=== PATIENT | female | born 1975 | race Caucasian/White ===

== ENCOUNTER 2023-03-29 15:05 | Emergency (ER) | payer BC, SELFPAY ==
[2023-03-29 15:08] VITALS: BP 135/85; PULSE 97; RESP 18; TEMP 36.2; O2SAT 99; BMI 24.7
--- NOTE | 2023-03-29 15:30 | ED.BACK ---
HPI - Back Pain/Injury General Chief Complaint: Back Injury/Pain Stated Complaint: sciatica pain Time Seen by Provider: 03/29/23 15:07 History of Present Illness HPI Narrative: This 47-year-old female comes in with low back pain radiating down her right leg. These symptoms have been present for about a week. She states that there was no injury event or strenuous activity to trigger this. She reports that she had similar symptoms several years ago and over time it completely resolved. She has been to a chiropractor but this has not provided much relief. She states that a standing position seems to minimize the pain compared to sitting or lying. Related Data Previous Rx's Medication Instructions Recorded cyclobenzaprine 10 mg tablet 10 mg PO TID #15 tabs 03/29/23 gabapentin 100 mg capsule 100 mg PO TID #30 caps 03/29/23 hydrocodone 5 mg-acetaminophen 325 1 tab PO Q4-6H PRN pain #20 tabs 03/29/23 mg tablet ketorolac 10 mg tablet 10 mg PO Q8H 5 days #15 tabs 03/29/23 methylprednisolone 4 mg tablets in See Rx Instructions PO .COMPLEX 03/29/23 a dose pack (Medrol (Brian)) #21 ea Allergies Allergy/AdvReac Type Severity Reaction Status Date / Time ciprofloxacin [From Cipro] Allergy Verified 03/29/23 15:11 Penicillins Allergy Verified 03/29/23 15:11 sulfamethoxazole Allergy Verified 03/29/23 15:11 [From Bactrim] trimethoprim [From Bactrim] Allergy Verified 03/29/23 15:11 Review of Systems Status of ROS: Reports: 10 or more systems reviewed and unremarkable except as noted in History and below Narrative: Constitutional: No fevers, no weight gain or loss. Eyes: No discharge. No vision changes. HENT: No congestion, no sore throat, no ear pain. Cardiovascular: No chest pain, no palpitations. Respiratory: No shortness of breath, no wheezes, no cough. Gastrointestinal: No abdominal pain, no vomiting, no diarrhea. Genitourinary: No dysuria, no hematuria. Musculoskeletal: Normal range of motion. Low back pain radiating down the right leg. Skin: No rashes, no pruritis. Neurological: No dizziness, weakness, sensory change, speech change. Endo/Heme/Allergies: No bruising or bleeding. No polydipsia. Pysch: no suicidality, no anxiety, no insomnia. All other systems reviewed and are negative. PFSH PFS Social History Smoking Status: Current every day smoker What tobacco products do you use: cigarettes Smoking packs per day: 0.5 Smoking cigarettes per day: 10.0 Years smoked: 32 Smoking pack-years: 16.00 Do you use any of these nicotine containing products: None Second hand tobacco smoke exposure: No How often do you have a drink containing alcohol: monthly or less How many standard drinks containing alcohol do you have on a typical day: 1 or 2 How often do you have six or more drinks on one occasion: Never AUDIT-C Alcohol total score: 1 Non-prescribed substance use: denies use service: No Exam Narrative: Exam Narrative: Constitutional: Well-developed, well-nourished, no acute distress. HEENT: Normocephalic, atraumatic. Neck: Normal range of motion. Nontender. Supple. Heart: Intact distal pulses. Lungs: No chest discomfort. No wheezes, rhonchi, or rales. Abdomen: Nontender. Back: Diffuse pain located in the right low back with pain radiating down the right leg to the foot. Extremities: Normal range of motion. No injury. Skin: Intact. No rash. Warm. No erythema or pallor. Neurologic: No altered sensation. No weakness. Alert and oriented. Psychiatric: No suicidality. No anxiety or depression. No insomnia. Nursing notes and vitals signs are reviewed. Const: Vital Signs, click to edit/add: Vital Signs - 24 hr 03/29/23 15:08 Temperature 97.2 F L Pulse Rate [Right Pulse Oximeter] 97 Respiratory Rate 18 Blood Pressure [Ri ght Upper Arm] 135/85 Pulse Oximetry 99 Oxygen Delivery Me thod Room Air Course Vital Signs Vital signs: Initial Vital Signs Temperature 97.2 F L 03/29/23 15:08 Temperature Source Temporal Artery Scan 03/29/23 15:08 Pulse Rate 97 03/29/23 15:08 Respiratory Rate 18 03/29/23 15:08 Blood Pressure 135/85 03/29/23 15:08 Blood Pressure Mean 101 03/29/23 15:08 Blood Pressure Position Sitting 03/29/23 15:08 Pulse Oximetry 99 03/29/23 15:08 Oxygen Delivery Method Room Air 03/29/23 15:08 Vital Signs Temperature 97.2 F L 03/29/23 15:08 Pulse Rate 97 03/29/23 15:08 Respiratory Rate 18 03/29/23 15:08 Blood Pressure 135/85 03/29/23 15:08 Pulse Oximetry 99 03/29/23 15:08 Oxygen Delivery Method Room Air 03/29/23 15:08 Temperature 97.2 F L 03/29/23 15:08 Pulse Rate 97 03/29/23 15:08 Respiratory Rate 18 03/29/23 15:08 Blood Pressure 135/85 03/29/23 15:08 Pulse Oximetry 99 03/29/23 15:08 Oxygen Delivery Method Room Air 03/29/23 15:08 MDM - Back Pain/Injury MDM Narrative Medical decision making narrative: This 47-year-old female comes in with typical symptoms of a lumbar radiculopathy. She has had similar symptoms several years ago. There is no recent injury event or strenuous activity that would indicate need for imaging at this time. She may need an MRI if not improving. She is interested in following up with the spine clinic here for further evaluation and treatment. She declined any intramuscular pain medicine at this time but did receive prescriptions for Medrol Dosepak, Toradol, [place], Flexeril, and gabapentin. She understands that some of these medicines are sedating. This may help her as she has difficulty with sleeping because the pain tends to be worse in a lying position. Discharge Plan Discharge Clinical Impression: Lumbar radiculopathy Patient Disposition: Home, Self-Care Condition: Unchanged Additional Instructions: Take medication as needed and indicated. Follow up with [facility] by calling [phone] for appointment. Return if worsening symptoms occur. Prescriptions: New cyclobenzaprine 10 mg tablet 10 mg PO TID Qty: 15 0RF hydrocodone-acetaminophen 5-325 mg tablet 1 tab PO Q4-6H PRN (Reason: pain) Qty: 20 0RF ketorolac 10 mg tablet 10 mg PO Q8H 5 Days Qty: 15 0RF gabapentin 100 mg capsule 100 mg PO TID Qty: 30 2RF methylprednisolone [Medrol (Brian)] 4 mg tablets,dose pack See Rx Instructions .ROUTE .COMPLEX Qty: 21 0RF Rx Instructions: orally per package directions Stand Alone Forms: [facility] Info Instructions
== END 2023-03-29 15:45 | disposition home or self-care (01) ==
LOC: ED 15:43
PROVIDERS: Emergency Provider Emergency Medicine Emergency Medical Services; PCP Family Medicine
DX: M54.16 Radiculopathy, lumbar region (principal)
CPT/HCPCS: 99283; 99284